=== PATIENT | female | born 2000 | race African-American/Black ===

== ENCOUNTER 2024-07-03 21:17 | Emergency (ER) | payer BC, SELFPAY ==
[2024-07-03 21:21] VITALS: BP 130/84
[2024-07-03 21:36] LABS: % Basophils 0.3 % (0-2); % Eosinophils 2.9 % (0-6); % Immature Granulocytes 0.4 % (0-0.5); % Lymphocytes 14.4 % (20.5-51.1); % Monocytes 7.6 % (1.7-9.3); % Neutrophils 74.4 % (42.2-75.2); Absolute Eosinophils 0.3 10^3/uL (0-0.7); Absolute Immature Granulocytes 0.1 10^3/uL (0-0.05); Absolute Lymphocytes 1.7 10^3/uL (1.2-3.4); Absolute Monocytes 0.9 10^3/uL (0.1-0.6); Absolute Neutrophils 8.8 10^3/uL (1.4-6.5); Hematocrit 44.6 % (37.0-47.0); Hemoglobin 14.8 g/dL (12.0-16.0); Mean Corp Hgb Conc. 33.2 g/dL (33.0-37.0); Mean Corpuscular Hgb 28.2 pg (27.0-31.0); Nucleated Red Blood Cells % 0 %; Platelet Count 402 10^3/uL (130-400); Red Blood Cell Count 5.25 10^6/uL (4.20-5.40); Red Cell Dist. Width 14.6 % (11.5-14.5); White Blood Cell Count 11.8 10^3/uL (4.8-10.8)
[2024-07-03 21:52] LABS: ALT (SGPT) 16 U/L (0-35); AST (SGOT) 17 U/L (14-36); Alkaline Phosphatase 66 U/L (38-126); Blood Urea Nitrogen 9 mg/dl (7-17); Calcium 9.4 mg/dl (8.4-10.2); Carbon Dioxide 21 mmol/L (22-30); Chloride 109 mmol/L (98-107); Glucose 97 mg/dl (70-99); Lipase 38 U/L (23-300); Potassium 4.2 mmol/L (3.5-5.1); Sodium 139 mmol/L (135-145); Total Bilirubin 0.4 mg/dl (0.2-1.3); Total Protein 7.3 g/dl (6.3-8.2); eGFR > 60.00
[2024-07-03 22:15] VITALS: BP 145/89
[2024-07-03 22:23] VITALS: BMI 39.3
[2024-07-03 22:39] LABS: Urine Albumin 1+ (Neg - Trace); Urine Bilirubin Negative (Negative); Urine Character Slightly Cloudy (Clear); Urine Color Yellow; Urine Glucose Negative (Negative); Urine Ketone Negative (Negative); Urine Leukocyte Negative (Negative); Urine Nitrite Negative (Negative); Urine Occult Blood 4+ (Negative); Urine Specific Gravity 1.025 (<1.030); Urine Urobilinogen Negative (Neg - 1+)
[2024-07-03 22:46] LABS: Urine Hyaline Cast 0-2 /LPF (0-2)
--- NOTE | 2024-07-03 22:55 | ED.GENMED ---
History of Present Illness
General
Chief Complaint: Abdominal Symptoms
Source: patient
Exam Limitations: none
Time Seen by Provider: 07/03/24 22:45
Nursing documentation reviewed up to this point in time: agreed with
History of Present Illness
History of Present Illness:
This is a healthy 24-year-old female who complains of several day history of nausea, vomiting, diarrhea. Initially began 5 days ago with nausea, a few episodes of vomiting. Vomiting has since subsided and she was feeling well for the next 2 days
but then crampy abdominal pain and diarrhea returned on July 01 and has persisted. She has not had a fever nor chills. She denies hematochezia. Abdominal pain is generalized mid to lower abdomen, crampy in nature, worse with episodes
of diarrhea.
No close contacts with similar symptoms. No recent travel nor recent antibiotic use.
She denies risk of , maintained on control pills.
She denies dysuria and urgency and or hematuria.
She has been taking Imodium without significant relief. She took 2 doses today, last dose at 4 PM.
She has been limiting her diet to the BRAT diet.
Past History
Past History
ED Past Medical History: None
ED Past Surgical History: None
Social History
Tobacco: Non-smoker
Personal: Single
Living: with family
Employment: Employed
Family History
Family History: Other (Noncontributory)
Phy Exam
Physical Exam
Physical Exam:
GENERAL: 24-year-old overweight female appears her stated age, bright and alert, pleasant, appears in no acute distress. Vital signs within normal limits.
EYE: anicteric
NECK: Supple, nontender, no meningismus, no significant adenopathy.
ENT: oral mucosa is mildly dry. No rhinorrhea.
CARDIAC: Regular rate and rhythm. no murmur.
LUNGS: Clear breath sounds bilaterally, no acute respiratory distress, no wheezes/rales/rhonchi
ABDOMEN: Soft, nondistended, without appreciable tenderness to palpation. No r/g, no cvat. normoactive BS.
NEUROLOGICAL: Alert and oriented x3, no focal neuro deficits. Gait is akbar and steady.
SKIN: Warm and dry, normal color, skin intact. No rash.
MUSCULOSKELETAL: No C/C/E. peripheral pulses are full and equal b/l. No palpable tenderness.
PSYCH: Normal and appropriate interaction.
Course
Orders/Labs/Results
Orders:
Orders
07/03/24 21:25
Complete Blood Count/With Diff Urgent
Comprehensive Metabolic Panel Urgent
HCG, Serum Qualitative Screen Urgent
Comment: ADDON
Lipase Urgent
07/03/24 22:27
Add On- LAB Urgent
Tests Added?: HCG qual.
07/03/24 22:31
Urinalysis Reflex To Culture Urgent
Date Specimen was Collected: 07/03/24
Time Specimen was Collected: 22:28
Urine Microscopic Reflex Cult Urgent
07/03/24 22:54
0.9% Sodium Chloride 1000 ml [Nss] 1,000 ml IV BOLUS
Dicyclomine HCl [Bentyl] 20 mg IM NOW STA
07/03/24 23:12
Diphenoxylate / Atropine [Lomotil] 1 tablet PO NOW STA
Abnormal Lab Results
07/03/24 07/03/24
21:25 22:31
WBC 11.8 H 10^3/uL
(4.8-10.8)
RDW 14.6 H %
(11.5-14.5)
Plt Count 402 H 10^3/uL
(130-400)
Abs Immat Gran (auto) 0.1 H 10^3/uL
(0-0.05)
Absolute Neuts (auto) 8.8 H 10^3/uL
(1.4-6.5)
Absolute Monos (auto) 0.9 H 10^3/uL
(0.1-0.6)
Lymphocytes % 14.4 L %
(20.5-51.1)
Chloride 109 H mmol/L
(98-107)
Carbon Dioxide 21 L mmol/L
(22-30)
Ur Occult Blood Reflex 4+ A
(Negative)
Urine RBC 7-10 A /HPF
(0-2)
Urine Albumin (Reflex) 1+ A
(Neg - Trace)
07/03/24 21:25
07/03/24 21:25
Vital Signs
Initial and Last Documented VS:
Initial Vital Signs
Temp Pulse Resp BP Pulse Ox
98.1 F 89 20 130/84 93
07/03/24 21:21 07/03/24 21:21 07/03/24 21:21 07/03/24 21:21 07/03/24 21:21
Last Documented Vital Signs
Temp Pulse Resp BP Pulse Ox
98.1 F 74 18 138/101 95
07/03/24 21:21 07/03/24 23:37 07/03/24 23:37 07/03/24 23:37 07/03/24 23:37
MDM/Problems Addressed
Differential Diagnosis Includes:
Concern for acute gastroenteritis such as norovirus, foodborne illness, other consideration is inflammatory bowel disease, colitis.
Concern for electrolyte abnormality, acute kidney injury.
Will initiate IV fluids, given IM dose of Bentyl and an oral dose of Lomotil.
Will check stool cultures, stool for norovirus if diarrhea occurs.
Will consider imaging/CT depending on clinical course.
Labs thus far revealed minimally elevated white blood cell count of 11.8. Chemistries are unremarkable. hCG is pending.
*Pulse Oximetry
Patient hypoxic: no
*Critical Care Note
Total Time (30-74mins, 75-104mins- exclusive of procedures): Not Applicable
Update Note
Update Note:
00:35
Patient feeling improved. Sleeps when undisturbed.
She has had no diarrhea since arrival to the ED.
Abdominal pain has resolved.
Will discharge to home with prescription for as needed Bentyl and as needed Lomotil.
Recommend continuing with clear liquids, brat diet.
Prompt follow-up with PCP for recheck.
Return precautions discussed.
ED Attending Note
-
Portions of this chart may have been created with voice recognition software.� Occasional wrong word or��sound alike� substitutions may have occurred due to the inherent limitations of voice recognition software.
Discharge Plan
Departure
Patient Disposition: Home (Routine Discharge)
Date of Disposition: 07/04/24
Time of Disposition: 00:39
Patient with high blood pressure during this ER visit?: No
Condition: Good
Discharge Problem:
Acute gastroenteritis
Instructions: Viral gastroenteritis in adults, Clear Liquid Diet
Prescriptions:
New
diphenoxylate-atropine [Lomotil] 2.5-0.025 mg tablet
1 tab PO QID PRN (Reason: diarrhea) Qty: 10 0RF
dicyclomine 20 mg tablet
20 mg PO QID PRN (Reason: abdominal pain) Qty: 20 0RF
Referrals:
STEPHANIE BUTCHER CRNP [Family Provider] - Call in 1-3 days for appt
Interventions
Interventions:
*Risk Screen - Suicide Last Done: 07/03/24 21:18
*General Assessment Last Done: 07/03/24 21:18
*Neglect/Abuse Screening Last Done: 07/03/24 21:18
ED- Fall Risk Assessment Last Done: 07/03/24 22:11
*ED COVID-19 Vaccine History Last Done: 07/03/24 22:07
EV-Aeqzoa-Ezlnzkjizp Assessment Last Done: 07/03/24 22:11
Discharge Date and Time
Print Language: WALLISIAN
[2024-07-03 23:08] LABS: HCG, Serum Qualitative Screen Negative
[2024-07-03] MEDS: BENTYL 20 MG IM (23:26)
[2024-07-03] MEDS: NSS 1000 IV (23:33)
[2024-07-03] MEDS: LOMOTIL 1 TABLET PO (23:33)
[2024-07-03 23:37] VITALS: BP 138/101
[2024-07-04 01:07] VITALS: BP 115/70
== END 2024-07-04 01:18 | disposition home or self-care (01) ==
LOC: EMR 21:17
PROVIDERS: Student in an Organized Health Care Education/Training Program; EMERGENCY PHYSICIAN Emergency Medicine; FAMILY PHYSICIAN Nurse Practitioner Adult Health
DX: K52.9 Noninfective gastroenteritis and colitis, unspecified (principal); Z79.3 Long term (current) use of hormonal contraceptives; E66.3 Overweight
CPT/HCPCS: 96372; 96360; 99284; 80053; 81003; 81015; 83690; 84703; 85025

== ENCOUNTER → 2024-08-03 10:08 | Outpatient (REF) | payer OTHER, SELFPAY ==
[2024-08-04 11:35] LABS: Mumps Virus IgG Positive; Rubeola (Measles) IgG Positive; Varicella Zoster IgG (VZV) Positive
[2024-08-04 18:52] LABS: Hepatitis B Surface Antibody Positive
[2024-08-04 20:25] LABS: Rubella Positive
[2024-08-05 07:47] LABS: Quantiferon Mitogen minus NIL 9.97 IU/mL; Quantiferon NIL 0.03 IU/mL; Quantiferon Plus TB1 minus NIL 0.01 IU/mL (<=0.34); Quantiferon Plus TB2 minus NIL 0.01 IU/mL (<=0.34); Quantiferon TB Gold Plus Negative (Negative)
== END ==
LOC: OHS 10:08
PROVIDERS: ATTENDING PHYSICIAN Nurse Practitioner Family
DX: Z23 Encounter for immunization (principal)
CPT/HCPCS: 36415; 86480; 86706; 86735; 86762; 86765; 86787